=== PATIENT | male | born 1975 | race Caucasian/White ===

== ENCOUNTER 2018-04-13 15:28 | Outpatient (RCR) | payer OTHER | END 2018-07-05 | disposition home or self-care (01) | LOC: WSOH | DX: G57.01 Lesion of sciatic nerve, right lower limb (principal); X50.0XXA Overexertion from strenuous movement or load, initial encounter; Y93.H3 Activity, building and construction; Y92.59 Other trade areas as the place of occurrence of the external cause; Y99.0 Civilian activity done for income or pay ==

== ENCOUNTER → 2019-03-30 | Outpatient (CLI) | payer OTHER ==
[~2019-03-30] MED LIST: NORCO 325 MG-51 TAB PO
== END ==
LOC: COL.RAD 13:39
DX: S66.912D Strain of unspecified muscle, fascia and tendon at wrist and hand level, left hand, subsequent encounter (principal); M19.032 Primary osteoarthritis, left wrist; Q76.49 Other congenital malformations of spine, not associated with scoliosis

== ENCOUNTER 2019-04-02 11:10 | Outpatient (RCR) | payer OTHER | END 2019-05-11 | disposition still patient (30) | LOC: WSOH | DX: S63.592A Other specified sprain of left wrist, initial encounter (principal); S66.912A Strain of unspecified muscle, fascia and tendon at wrist and hand level, left hand, initial encounter; X50.0XXA Overexertion from strenuous movement or load, initial encounter; Y93.H1 Activity, digging, shoveling and raking; Y92.59 Other trade areas as the place of occurrence of the external cause; Y99.0 Civilian activity done for income or pay ==